=== PATIENT | female | born 1965 | race Caucasian/White ===

== ENCOUNTER 2022-03-08 15:06 | Outpatient (CLI) | payer OTHER, SELFPAY ==
--- NOTE | ~2022-03-08 | MM_ITS ---
EXAMINATION: MM screening radha BI w chilo HISTORY: Screening TECHNIQUE: Craniocaudal and mediolateral oblique 3-D tomosynthesis images were obtained and synthetic 2-D images were generated. CAD analysis was submitted and interpreted. COMPARISON: Comparison to multiple prior studies sequentially, with oldest reviewed study dated 12/2013. BREAST PARENCHYMAL COMPOSITION: Breast composed of scattered areas of fibroglandular density FINDINGS: There is a developing asymmetry in the upper outer quadrant of the left breast. The right b reast is stable without evidence for malignancy. IMPRESSION: 1. Developing left breast asymmetry, upper outer quadrant posteriorly. 2. Additional mammographic views and possible breast ultrasound are recommended. BI-RADS Category 0: Incomplete: Needs additional imaging evaluation. Reviewed, dictated and finalized at location A. IMPRESSION: 1. Developing left breast asymmetry, upper outer quadrant posteriorly. 2. Additional mammographic views and possible breast ultrasound are recommended . BI-RADS Category 0: Incomplete: Needs additional imaging evaluation.
== END 2022-03-08 15:07 | disposition home or self-care (01) ==
LOC: ANHIMG 15:10
PROVIDERS: PCP Obstetrics & Gynecology; Visit Provider Obstetrics & Gynecology
DX: Z12.31 Encounter for screening mammogram for malignant neoplasm of breast (principal); R92.8 Other abnormal and inconclusive findings on diagnostic imaging of breast
CPT/HCPCS: 77063; 77067

== ENCOUNTER 2022-03-27 13:15 | Outpatient (CLI) | payer OTHER, SELFPAY ==
--- NOTE | ~2022-03-27 | MMUS_ITS ---
EXAMINATION: MM diagnostic radha LT w chilo, US breast LT limited HISTORY: Left breast asymmetry on screening mammogram TECHNIQUE: Additional 3-D tomosynthesis images of the left breast were performed and synthetic 2-D im ages were generated. CAD analysis was submitted and interpreted. High resolution limited left breast ultrasound was performed. COMPARISON: 03/08/2022, 12/29/2018, 08/07/2017 FINDINGS: MAMMOGRAPHIC FINDINGS: There is a persistent asymmetry in the middle third of the upper-outer quadrant breast 5 cm from the nipple on the mediolateral oblique view. No definite suspicious calcification or mass are identified. ULTRASOUND: There is a 10 mm x 4 mm oval, circumscribed, parallel, hypoechoic mass at the 1:00 location 3 cm from the nipple with no posterior features or internal vascularity. There is a 4 mm x 3 mm mass with long lar sonographic features at the 3:00 location 3 cm from the nipple. IMPRESSION: 1. Probably benign left breast masses. 2. Recommend 6 month follow-up left diagnostic mammogram and ultrasound. BI-RADS category 3, probably benign findings. Reviewed, dictated and finalized at location A. IMPRESSION: 1. Probably benign left breast masses. 2. Recommend 6 month follow-up left diagnostic mammogram and ultrasound. BI-RADS category 3, probably benign findings.
== END 2022-03-27 13:16 | disposition home or self-care (01) ==
PROVIDERS: PCP Obstetrics & Gynecology; Visit Provider Obstetrics & Gynecology
DX: R92.8 Other abnormal and inconclusive findings on diagnostic imaging of breast (principal)
CPT/HCPCS: 76642; 77061; 77065; G0279

== ENCOUNTER 2022-10-24 13:16 | Outpatient (CLI) | payer OTHER, SELFPAY ==
--- NOTE | ~2022-10-24 | MMUS_ITS ---
EXAMINATION: MM diagnostic radha LT w chilo, US breast LT limited HISTORY: Six-month follow-up for probably benign left breast masses TECHNIQUE: Craniocaudal, mediolateral, and mediolateral oblique 3-D tomosynthesis images of the left breast were performed and synthetic 2-D images were generated. CAD analysis was submitted and interpr eted. High resolution limited left breast ultrasound was performed. COMPARISON: 03/27/2022, 03/08/2022, 12/29/2018, 07/18/2017 BREAST PARENCHYMAL COMPOSITION: There are scattered areas of fibroglandular density. FINDINGS: MAMMOGRAPHIC FINDINGS: A stable asymmetry persists in the middle third of the upper outer quadrant of the breast 5 cm from t he nipple on the mediolateral oblique view. No suspicious mass, calcification, or architectural disto rtion are identified ULTRASOUND: There is a stable 9 mm x 4 mm oval, circumscribed, parallel, hypoechoic mass with no posterior featur es or internal vascularity at the 1:00 location 3 cm from the nipple. There is a stable 5 mm x 3 mm m ass with similar sonographic features at the 3:00 location 3 cm from the nipple. IMPRESSION: 1. Stable, probably benign left breast masses. 2. Recommend 6 month follow-up bilateral diagnostic mammogram and left breast ultrasound. BI-RADS category 3, probably benign findings. Reviewed, dictated and finalized at location A. IA WRAPPER MAKER IMPRESSION: 1. Stable, probably benign left breast masses. 2. Recommend 6 month follow-up bilateral diagnostic mammogram and left breast u ltrasound. BI-RADS category 3, probably benign findings.
== END 2022-10-24 13:17 | disposition home or self-care (01) ==
PROVIDERS: PCP Obstetrics & Gynecology; Visit Provider Obstetrics & Gynecology
DX: R92.8 Other abnormal and inconclusive findings on diagnostic imaging of breast (principal)
CPT/HCPCS: 76642; 77061; 77065; G0279

== ENCOUNTER 2023-06-18 11:29 | Outpatient (CLI) | payer OTHER, SELFPAY ==
--- NOTE | ~2023-06-18 | MMUS_ITS ---
EXAMINATION: MM diagnostic radha BI w chilo, US breast LT limited HISTORY: Six-month follow-up for probably benign left breast masses TECHNIQUE: Craniocaudal, mediolateral, and mediolateral oblique 3-D tomosynthesis images of the abdiaziz ts were performed and synthetic 2-D images were generated. CAD analysis was submitted and interpreted . High resolution limited left breast ultrasound was performed. COMPARISON: 10/24/2022, 03/27/2022, 03/08/2022, 12/29/2018 BREAST PARENCHYMAL COMPOSITION: There are scattered areas of fibroglandular density. FINDINGS: MAMMOGRAPHIC FINDINGS: Right breast: No suspicious mass, calcification, or architectural distortion are identified to sugges t malignancy. There has been no suspicious interval change. Left breast: A stable asymmetry is again seen in the middle third outer quadrant breast 5 cm from the nipple on the mediolateral oblique view. There has been no suspicious interval change. No suspicious mass, calcification or architectural distortion are identified. ULTRASOUND: There is a stable 8 mm x 4 mm oval, circumscribed, parallel, hypoechoic mass with posterior acoustic enhancement and no internal vascularity at the 1:00 location, 3 cm from the nipple. There is a stable 5 mm x 3 mm oval, circumscribed, parallel, hypoechoic mass with no posterior features or internal va scularity at the 3:00 location, 3 cm from IMPRESSION: 1. Stable, probably benign left breast masses. 2. Given one year of interval stability, recommend 12 month followup bilateral diagnostic mammogram a nd left breast ultrasound. BI-RADS category 3, probably benign findings. Reviewed, dictated and finalized at location A. IMPRESSION: 1. Stable, probably benign left breast masses. 2. Given one year of interval stability, recommend 12 month followup bilateral diagnostic mammogram and left breast ultrasound. BI-RADS category 3, probably benign findings.
== END 2023-06-18 11:30 | disposition home or self-care (01) ==
LOC: ANHIMG 11:31
PROVIDERS: Visit Provider Obstetrics & Gynecology
DX: R92.8 Other abnormal and inconclusive findings on diagnostic imaging of breast (principal)
CPT/HCPCS: 76642; 77061; 77062; 77065; 77066; G0279

== ENCOUNTER 2024-11-30 11:04 | Outpatient (CLI) | payer OTHER, SELFPAY ==
--- NOTE | ~2024-11-30 | MMUS_ITS ---
EXAMINATION: MM diagnostic radha BI w chilo, US breast LT limited HISTORY: One year follow-up left breast masses TECHNIQUE: Additional 3-D tomosynthesis images of the breasts were performed and synthetic 2-D images were generated. CAD analysis was submitted and interpreted. High resolution Limited left breast ultr asound was performed. COMPARISON: Comparison to multiple prior studies sequentially, with oldest reviewed study dated 07/19. BREAST PARENCHYMAL COMPOSITION: Not dense: There are scattered areas of fibroglandular density. FINDINGS: MAMMOGRAPHIC FINDINGS: Not dense: There are scattered areas of fibroglandular density. There are no suspicious masses, calci fications or architectural distortion in either breast to suggest malignancy. ULTRASOUND: Limited left breast ultrasound: At 1:00, 3 cm from the nipple there is a oval 6 mm partially cystic m ass without internal vascularity or posterior features without significant change from prior examinat ion line for technique. At 2:00 near the nipple there is a 4 mm cyst without significant change. At 3 :00, 3 cm from the nipple there is an oval hypoechoic 5 mm mass with parallel orientation, no posteri or features and no internal vascularity, without significant change, likely benign. IMPRESSION: 1. Stable likely benign left breast masses. 2. Given one year of interval stability, recommend 12 month followup bilateral screening mammogram an d Limited left breast ultrasound BI-RADS category 3, probably benign findings. Reviewed, dictated and finalized at location B. IMPRESSION: 1. Stable likely benign left breast masses. 2. Given one year of interval stability, recommend 12 month followup bilateral screening mammogram and Limited left breast ultrasound BI-RADS category 3, probably benign findings.
--- OUTSIDE RECORDS SUMMARY | 2024-11-30 12:22 | XMS_ITS | Referral Summary ---
Author Organization [facility] Address [address] [place] [address] Care Team Providers Care Javascript Front End Developer Name Role Phone Saqib Dan MD Primary Care Provider Jg Rodriguez MD Unavailable [phone] Declan Almendarez MD Unavailable [phone] Encounters Date Type Department Care Team Description 09/10/2024 1:15 PM IT INFRASTRUCTURE SPECIALIST Office Visit [address] [address] Saqib Dan MD Preventative health care (Primary Dx); Sleep disturbance; Overweight (BMI 25.0-29.9); Hypothyroidism, unspecified type; Screening for deficiency anemia; Screening for metabolic disorder; Screening for diabetes mellitus; Screening for lipid disorders; Screening for viral disease; Encounter for screening mammogram for malignant neoplasm of breast from Last 3 Months Allergies Active Allergy Reactions Criticality Noted Date Comments Penicillins Anaphylaxis,Hives High 03/20/2016 Medications multivitamin capsule Take 1 capsule by mouth daily Active biotin 5 mg tablet Take by mouth Active magnesium gluconate 200 mg tablet 1 tablet (200 mg total) Active calcium carbonate-vitam in D3 1,500 mg (600 mg elemental)-1,00 0 unit capsule Take by mouth A ctive Zepbound 10 mg/0.5 mL pen injectorIndicat ions:Overweight (BMI 25.0-29.9) ADMINISTER 10 MG UNDER THE SKIN EVERY 7 DAYS 2 mL 2 4 Active Synthroid 150 mcg tablet Take 1 tablet (150 mcg total) by mouth daily 90 tablet 3 4 07/13/20 25 Active Active Problems Problem Noted Date Diagnosed Date Sleep disturbance 09/10/2024 Overweight (BMI 25.0-29.9) 09/04/2023 Nuclear sclerotic cataract of both eyes 03/12/20 18 Assessment & Plan (02/16/2019 11:43 AM CDT): Surgery not yet indicated. Update SRx. 1 year. Assessment & Plan (03/12/2018 1:21 PM CDT): Pt needs DFE. Declines today since going back to work. Schedule for comp exam with DFE at earliest convenience. Hypothyroidism 01/01/2014 Assessment & Plan (01/12/2019 1:47 PM CDT): Clinically euthyroid. Will check TSH and FT4 Resolved Problems Problem Noted Date Diagnosed Date Resolved Date Encounter for screening colonoscopy 10/14/2018 06/27/2022 Overview (10/14/2018): Added automatically from request for surgery [id number] Lesion of eyelid 05/29/2018 06/28/2022 Chalazion of right upper eyelid 03/12/2018 06/28/2022 Assessment & Plan (03/12/2018 1:21 PM CDT): Present since October. Started getting red in the past week. Interested in surgical removal. Schedule for consult with oculoplastics for chalazion. Malignant neoplasm of thyroid gland (CMS/HCC) 01/02/20 14 09/04/2023 Assessment & Plan (01/12/2019 1:49 PM CDT): She is s/p GREEN with at least 2 negative WBS, and is currently asymptomatic. Will obtain Tg, and Tg ab. Will obtain thyroid US for screening. Immunizations Immunization Administration Dates Next Due Influenza, Quadrivalent, Jolly l Culture-based MDCK, Preservative Free, Antibiotic Free, Intramuscular 06/18/2023 Influenza, Quadrivalent, Spl it, Preservative Free, Intramuscular 07/05/2020 Influenza, Trivalent, IM (MDV) 06/19/2021 Influenza, Trivalent, Preservative Free, Intramu scular 05/31/2024 Influenza, Unspecified 06/28/2022 Tdap 06/28/2022 Social History Tobacco Use Types Packs/Day Years Used Date Smoking Tobacco: Never Cigarettes Smokeless Tobacco: Never Tobacco Cessation:Counseling Given: Not Answered Alcohol Use Standard Drinks/Week Comments Yes 2 (1 standard drink = 0.6 oz pur e alcohol) PHQ-2 Answer Date Recorded PHQ-2 Total Score (If total score is 3 or more points, staff should administer the PHQ-9) 0 09/10/2024 Comments No Sex and Gender Information Value Date Recorded Sex Assigned at Not on file Legal Sex Female 1:17 AM IT INFRASTRUCTURE SPECIALIST Gender Identity Not on file Sexual Orientation Not on file 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, 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 on file Not on f ile Not on file Last Filed Vital Signs Vital Sign Reading Time Taken Comments Blood Pressure 122/82 09/10/2024 1:20 PM IT INFRASTRUCTURE SPECIALIST Pulse 81 09/10/2024 1:20 PM IT INFRASTRUCTURE SPECIALIST Temperature 36.6 C (97.9 F) 07/05/2024 1:40 PM IT INFRASTRUCTURE SPECIALIST Respiratory Rate 12 12/07/2018 10:36 AM CDT Oxygen Saturation 98% 09/10/2024 1:20 PM IT INFRASTRUCTURE SPECIALIST Inhaled Oxygen Concentration - - Weight 71.6 kg (157 lb 13 oz) 09/10/2024 1:20 PM IT INFRASTRUCTURE SPECIALIST Height 163.4 cm (5' 4.32 ) 09/10/2024 1:20 PM CS T Body Mass Index 26.82 09/10/2024 1:20 PM IT INFRASTRUCTURE SPECIALIST Plan of Treatment Not on file Procedures Procedure Name Priority Date/Time Associated Diagnosis Comments HM MAMMOGRAPHY Routine 05/18/2022 HM PAP SMEAR WITH HPV Routine 04/18/2022 COLONOSCOPY 12/07/2018 10:01 AM CDT from Last 3 Months or Most Recently Relevant to Health Maintenance Results * HM MAMMOGRAPHY (05/18/2022) Mammogram Normal us Historical Provider HEALTH MAINTENANCE Final Result * PAP SMEAR WITH HPV (04/18/2022) Pap smear Normal us Historical Provider HEALTH MAINTENANCE Final Result * COLONOSCOPY (12/07/2018 10:01 AM CDT) Anatomical Region Laterality Modality Other Narrative Procedure Note Yoanna Ag MD - 12/07/2018 10:01 AM CDT [facility] Patient Name: Lachelle Riley Procedure Date: 12/07/2018 10:01 AM Date of : 1965 Admit Type: Outpatient Age: 53 Gender: Female Attending MD: Yoanna Ag M.D. Room: [facility] ENDOSCOPY ROOM 9 Note Status: Finalized Procedure: Colonoscopy Indications: Screening for colorectal malignant neoplasm, This is the patient's first colonoscopy Referring MD: Declan Genao M.D. Providers: Yoanna Ag M.D. Medicines: Monitored Anesthesia Care Complications: No immediate complications. Estimated Blood Loss: Estimated blood loss: none. Procedure: Pre-Anesthesia Assessment: - Immediately prior to administration ofmedications, the patient was re-assessed for adequacy to receive sedatives. - The risks and benefits of the procedure and the sedation options and risks were discussed with the patient. All questions were answered and informed consent was obtained. The benefits, risks and alternatives of theprocedure and sedation were discussed and informed consent was obtained. All questions were answered. Please referto the signed informed consent document in the medical record. The scope was passed under direct vision.The CF [id number] endoscope was introduced throughthe anus and advanced to the cecum, identified by appendiceal orifice and ileocecal valve. The colonoscopy was performed without difficulty. The patient tolerated the procedure well. The quality of the bowel preparation was evaluated using the BBPS ([place] Bowel Preparation Scale) with scores of:Right Colon = 3, Transverse Colon = 3 and Left Colon = 3 (entire mucosa seen well with no residual staining, small fragments of stool or opaque liquid). Thetotal BBPS score equals 9. The bowel preparation used was polyethylene glycol (PEG). Bowel prep wasadministered using a split dose. The quality of the bowel preparation was excellent. Findings: A single small-mouthed diverticulum was found in the sigmoid colon. The exam was otherwise without abnormality. Impression: - Diverticulosis in the sigmoid colon. - The examination was otherwise normal. - No specimens collected. Recommendation: - Repeat colonoscopy in 10 years for screeningpurposes. Attending Participation: I personally performed the entire procedure. Electronically signed by Yoanna Ag MD Yoanna Ag M.D. 12/07/2018 10:28:06 AM . Number of Addenda: 0 Note Initiated On: 12/07/2018 10:01 AM Recognized by the [place] [employer] for promoting quality in endoscopy us Yoanna Ag MD ENDOSCOPY PROCEDURES Final Res ult from Last 3 Months or Most Recently Relevant to Health Maintenance Insurance [facility] [employer] [facility] HMO/PPO Address: [place] [address] [facility] [employer] [facility] HMO/PPO Address: [place] [address] [facility] [employer] [facility] HMO/PPO Address: [address] [place] [address] [facility] [employer] [facility] HMO/PPO Address: [address] [address] Advance Directives For more information, please contact: [phone] * Full Code (Latest Code Status on File) Date Activated Date Inactivated Comments 12/07/2018 9:47 AM 12/07/2018 9:14 PM Care Teams Javascript Front End Developer Relationship Specialty Start Date End Date Saqib Dan MD [address] [address] PCP - General Internal Medicine 06/28/22 Jg Rodriguez MD [address] [address] Consulting Physician Endocrinology Diabetes & Metabolism 06/28/22 Declan Almendarez MD [address] [address] Referring Physician Obstetrics and Gynecology 06/28/22
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
--- OUTSIDE RECORDS SUMMARY | 2024-11-30 12:22 | XMS_ITS | Clinical Summary ---
Author Organization [facility] Address [address] [place] [address] Care Team Providers Care Director Stars Name Role Phone Omar Conley MD Primary Care Provider [phone] Source Comments [facility],non-owned Affiliates and Associated Physician Practices is amultiple site organization consisting of ambulatory clinics and hospital sitesin [place], [place], [place] and [place]. This disclosure is being madepursuant to the Care Everywhere program and may not contain all information available regarding this patient. Last updated 18.[facility] Allergies Active Allergy Reactions Criticality Noted Date Comments Penicillins Urticaria Medium 02/17/2018 Medications * Be aware that medications may not be up to date on this document. Alwaysverify current medications with the patient. Levothyroxine Sodium (SYNTHROID PO) Activ e diphenhydramin e 12.5mg/ml, 30ml,; visc lidocaine 2%, 30ml,; maalox, 30ml, (MIRACLE MOUTHWASH) SUSP 1:1:1 solution of viscous lidocaine 2%, Maalox, diphenhydramine 12.5mg/5ml elixir 90 mL 02/18/20 18 Active Family History Medical History Relation Name Comments Diabetes - Type 2 Father Hypertension Mother Relation Name Status Comments Father Alive Mother Alive Social History Tobacco Use Types Packs/Day Years Used Date Smoking Tobacco: Never Smokeless Tobacco: Never Comments No Sex and Gender Information Value Date Recorded Sex Assigned at Not on file Legal Sex Female 6:18 AM [employer] Gender Identity Not on file Sexual Orientation Not on file Last Filed Vital Signs Vital Sign Reading Time Taken Comments Blood Pressure 120/78 02/17/2018 9:28 AM CDT Pulse 81 02/17/2018 9:28 AM CDT Temperature 36.9 C (98.5 F) 02/17/2018 9:28 AM CDT Respiratory Rate 16 02/17/2018 9:28 AM CDT Oxygen Saturation 98% 02/17/2018 9:28 AM CDT Inhaled Oxygen Concentration - - Weight 86.2 kg (190 lb) 02/17/2018 9:28 AM CDT Height 167.6 cm (5' 6 ) 02/17/2018 9:28 AM CDT Body Mass Index 30.67 02/17/2018 9:28 AM CDT Plan of Treatment Health Maintenance Due Date Last Done Comments COLOGUARD (AGES 45-75) - COL ON CA SCREENING 1967 COLON MONITORING 1967 COLONOSCOPY - COLON CA SCREENING 1967 CT COLONOGRAPHY - COLON CA SCREENING 1967 Colorectal Cancer Screening 1967 FIT - COLON CA SCREENING 1967 FLEX SIG - COLON CA SCREENING 1967 LIPID TESTING 1967 MAMMOGRAM 1967 PAP SMEAR 1967 HIV SCREENING 11/02/1982 HEPATITIS C SCREENING 10/29/1985 DTAP/TDAP/TD VACCINES (1 - Tdap) 11/02/1986 HEPATITIS B VACCINE (1 of 3 - 19+ 3-dose series) 11/02/1986 PNEUMOCOCCAL VACCINE 50+ (1 of 1 - PCV) 11/02/2017 ZOSTER VACCINE (1 of 2) 11/02/2017 SCREENING FOR DIABETES 02/17/2018 COVID-19 VACCINE (1 - 2023-2 5 season) 2024 DEPRESSION SCREENING 08/18/2024 INFLUENZA VACCINE (Season Ended) 2025 HIB VACCINE Aged Out No longer eligi ble based on patient's age to complete this topic HPV VACCINE Aged Out No longer eligi ble based on patient's age to complete this topic MENINGOCOCCAL (Group B) VACC INE SHARED DECISION-MAKING Aged Out No longer eligibl e based on patient's age to complete this topic MENINGOCOCCAL GROUPS A/C/Y/W VACCINE Aged Out No longer eligible b ased on patient's age to complete this topic PNEUMOCOCCAL VACCINE Aged Out No long er eligible based on patient's age to complete this topic Insurance [facility] Care Teams Director Stars Relationship Specialty Start Date End Date Omar Conley MD [address] [facility] [place] [address] PCP - General Family Medicine 02/17/18
== END 2024-11-30 11:05 | disposition home or self-care (01) ==
PROVIDERS: Visit Provider Obstetrics & Gynecology
DX: R92.8 Other abnormal and inconclusive findings on diagnostic imaging of breast (principal)
CPT/HCPCS: 76642; 77062; 77066; G0279